=== PATIENT | female | born 1995 | race Caucasian/White ===

== ENCOUNTER 2018-05-23 17:57 | Emergency (ER) | payer OTHER ==
[2018-05-23] MEDS ORDERED: RALTEGRAVIR 400 MG TABLET PO STA (18:49)
[2018-05-23] MEDS ORDERED: lamiVUDine/ZIDOVUDINE 150 MG/300 MG TABLET PO STA (18:49)
[2018-05-23] MEDS ORDERED: LIDOCAINE 1% 2 ML VIAL SUBQ ONE (18:49)
[2018-05-23] MEDS ORDERED: ULIPRISTAL ACETATE 30 MG TABLET PO STA (18:49)
[2018-05-23] MEDS ORDERED: cefTRIAXone 250 MG VIAL IM STA (18:49)
[2018-05-23] MEDS ORDERED: ONDANSETRON ODT 4 MG TABLET TL STA (18:50)
[2018-05-23] MEDS ORDERED: AZITHROMYCIN 250 MG TABLET PO STA (18:50)
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
[2018-05-23 19:11] LABS: BILIRUBIN,URINE NEGATIVE (NEGATIVE); GLUCOSE, URINE (UA) NEGATIVE (NEGATIVE); KETONES,URINE (UA) NEGATIVE (NEGATIVE); LEUKOCYTE ESTERASE, URINE NEGATIVE (NEGATIVE); NITRITE,URINE NEGATIVE (NEGATIVE); OCCULT BLOOD,URINE NEGATIVE (NEGATIVE); PROTEIN,URINE NEGATIVE (NEGATIVE); UROBILINOGEN,URINE 0.2 (NORMAL) E.U./dL (NORMAL)
[2018-05-23 19:16] LABS: CLARITY,URINE CLEAR (CLEAR); HCG UR QUAL NEGATIVE
[2018-05-23 21:08] VITALS: BP 122/84
[2018-05-26 14:26] LABS: HIV AG/AB 4TH GEN NON-REACTIVE (NON-REACTIVE)
== END 2018-05-23 21:13 | disposition home or self-care (01) ==
LOC: ED 17:57
DX: T74.21XA Adult sexual abuse, confirmed, initial encounter (principal); F17.200 Nicotine dependence, unspecified, uncomplicated
CPT/HCPCS: 36415; 81003; 81025; 87389; 87491; 87591; 96372; 99283; A9270; Q0162; 81001; 87086

== ENCOUNTER 2018-05-24 09:01 | Emergency (ER) | payer OTHER ==
[2018-05-24 09:19] VITALS: BP 137/86
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
== END 2018-05-24 13:51 | disposition home or self-care (01) ==
LOC: ED 09:01
DX: T74.21XA Adult sexual abuse, confirmed, initial encounter (principal); S40.021A Contusion of right upper arm, initial encounter; S40.022A Contusion of left upper arm, initial encounter; S70.312A Abrasion, left thigh, initial encounter; S80.02XA Contusion of left knee, initial encounter; F17.200 Nicotine dependence, unspecified, uncomplicated; S80.01XA Contusion of right knee, initial encounter
CPT/HCPCS: 0133C; 99282

== ENCOUNTER 2018-12-03 20:45 | Emergency (ER) | payer OTHER ==
[2018-12-03] MEDS ORDERED: TRANEXAMIC ACID 1,000 MG/10 ML VIAL NAS STA (21:13)
[2018-12-03] MEDS ORDERED: LIDOCAINE 1%-EPI 1:100000 30 ML MDV SUBQ STA (21:13)
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
[2018-12-03 21:59] VITALS: BP 111/69
== END 2018-12-03 22:39 | disposition home or self-care (01) ==
LOC: ED 20:45
DX: K64.9 Unspecified hemorrhoids (principal); K64.4 Residual hemorrhoidal skin tags; F17.200 Nicotine dependence, unspecified, uncomplicated
CPT/HCPCS: 99283